=== PATIENT | male | born 1995 | race Caucasian/White ===

== ENCOUNTER 2016-10-23 12:36 | Day surgery (SDC) | payer MEDICARE ==
[~2016-10-23] VITALS: Ht 177.8 cm; Wt 102.7 kg
[~2016-10-23 12:36] MED LIST: CeFAZolin Inj 2 GM in IV Premix 1 EACH IV ONE; IBUP200C PO; Lactated Ringer's 1,000 ML IV SCH; metroNIDAZOLE Inj 500 MG in IV Premix 1 EACH IV ONE
[2016-10-23] MEDS ORDERED: Propofol 10,000 mCg/mL 20 mL Inj ONE (12:37)
[2016-10-23] MEDS ORDERED: metroNIDAZOLE 500 mg/100 mL NS Premix IV ONE (12:39)
[2016-10-23 12:55] VITALS: BP 130/69; PULSE 81; RESP 18; O2SAT 97
[2016-10-23] MEDS ORDERED: Lactated Ringer's 1,000 ML IV ONE (13:19)
[2016-10-23] MEDS ORDERED: Bupivacaine-MPF 0.25%/EPI 30 mL Inj INFILTRATE ONE (14:24)
[2016-10-23] MEDS ORDERED: Lidocaine 1% 50 mL Inj INFILTRATE ONE (14:24)
[2016-10-23] MEDS ORDERED: Lactated Ringer's 500 ML IV PRN (14:49)
[2016-10-23] MEDS ORDERED: Lactated Ringer's 1,000 ML IV SCH (14:49)
--- NOTE | 2016-10-23 14:49 | PCM.HPANE ---
Patient Data Date of Service: October 23, 2016 Surgeon Admitting Provider: Attending Provider:Nick Velasquez MD Primary Care Physician:Carlos A Jacobs MD Other Provider:Chrsitie Barajas Anesthesia Reason for Visit Peristomal Wound Ht/WT & BMI Height (Feet): 5 Height (Inches): 10.00 Weight (Kilograms): 102.7 Body Mass Index 32.00 Allergies Coded Allergies: No Known Allergies (Unverified Allergy, Unknown, 02/05/16) Past Anesthesia History Anesthesia History: Denies:: Abnormal Airway, Anesthesia Reactions (Takes awhile to wake up), Difficult Intubation, Fam Anesthesia Reaction, Fam Malignant Hypertherm, Malignant Hyperthermia Diabetes History Hx Diabetes?: No MRSA MRSA: No Medications Home Meds Incl Beta Rancho: No Reported Medications Ibuprofen 200 Mg [id number] Mg PO QID PRN For Pain Ref 0 10/21/16 Discontinued Scripts Multivitamin (Multivitamins)1 Each Capsule1 Each PO DAILY #30 CAPSULE Prov:Marian Hilliard 03/07/15 History History of ENT Problems?: No HEENT History: Denies:: Abnormal Airway Cataracts Difficult Intubation Dysphagia Glaucoma Hearing Problem Sinus Problem TMJ Denture Type: None Teeth Condition: Within Normal Limits Hx of Heart Problems?: No Cardiovascular History: Denies:: AICD Abdominal Aortic Aneurism Atrial Fibrillation Cardiac Surgery Chest Pain Congestive Heart Failure Coronary Artery Disease Edema Heart Murmur Hypertension Irregular Heartbeat Pacemaker Peripheral Vascular Rheumatic Fever Thrombophlebitis Valvular Heart Disease Hx of Respiratory Problem?: No Respiratory History: Denies:: Asthma Chest Surgery Dyspnea Pneumonia Tuberculosis Hx Neurologic Problems?: No Neurological History: Denies:: CVA Dementia Dizziness Headaches Parkinson's Disease Seizures Hx of GI Problems?: Yes Gastrointestinal History: Denies:: Cirrhosis Diverticulitis Gall Bladder Disease Gastroesphageal Reflux Gastrointestinal Bleeding Heartburn Hepatitis Hiatal Hernia Liver Disease Rectal Bleeding Other GI Pertinent History: 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 Pressure Ulcers Hx Musculoskeletal Problems?: No Musculoskeletal History: Denies:: Back Injury Joint Replacement Hx of Psycho/Social Problems?: No Psycho Social History: Denies:: Anxiety Hx Depression (Situational) Suicide Attempt Hx Surgeries?: Yes (J-pouch, colectomy, abscess drains) Hx Any Other Health Problems?: Yes Other History: Positive for:: Hospitalization Denies:: Cancer (Precancerous) Thyroid Disease History Blood Transfusions: Denies:: Blood Transfusions Hx Diabetes: No Hx Alcohol Use: YesHx Substance Use: No Smoking Status: Never Smoker Have You Smoked inLast 12 mo: No Stop/Bang Treated for Sleep Apnea?: No Do You Have a CPAP Machine?: No S-Snoring: Do You Snore Loudly: Yes T-Tired: feel tired, fatigued: Yes O-Obsered: Observed not breath: No P-Blood Pressure: treated: No B- Body Mass Index > 35 kg/m2: No A- Age over 50: No N- Neck Large Circumference: No G- Gender Male: Yes MAGGIE Total Score: 3 MAGGIE Risk Assessment: Low Risk, <3 Yes Risk Assessment Category Category 1A: Patient has history of documented sleep apnea, and HAS NOT received any narcotic, sedative or anesthesia administration during this stay. Category 1B: Patient has history of documented sleep apnea, and HAS received any narcotic , sedative or anesthesia administration during this stay Category 2: Patient has SUSPECTED Obstructive Sleep Apnea, and HAS received any narcotic , sedative or anesthesia administration during this stay. Category 3: Patient has SUSPECTED Obstructive Sleep Apnea and HAS NOT received narcotic, sedative or anesthesia administration during this stay. Category 4: Outpatient in Procedural Areas with known sleep apnea or who screen positive for High Risk via the STOP/BANG questionnaire. Exam Exam Vital Signs Vital Signs Date Time Temp Pulse Resp B/P Pulse Ox O2 Delivery O2 Flow Rate FiO2 10/23/16 12:55 36.4 81 18 130/69 97 Room Air General Appearance: Oriented X3 HEENT/AIRWAY: MP 1 Lungs: Clear to Auscultation Heart: Exam Unremarkable Meds/Labs/Diagnostics Admission Meds Current Medications Lactated Ringer's (Lr) 1,000 ml @ ud STK-MED ONCE IV Last administered on t 13:19; Start 10/23/16 at 13:19; Stop 10/23/16 at 13:20; Status DC Bupivacaine HCl/ Epinephrine Bitart (Sensorcaine-MPF 0.25%/EPI Inj) 30 ml STK- MED ONCE INFILTRATE Last administered on 10/23/16 14:24; Start 10/23/16 at 14:24 ; Stop 10/23/16 at 14:37; Status DC Lidocaine HCl (Xylocaine 1% Inj) 30 ml STK-MED ONCE INFILTRATE Last administered on 10/23/16 14:24; Start 10/23/16 at 14:24; Stop 10/23/16 at 14:37; Status DC Plan Impression Patient chart reviewed, patient interviewed and anesthestic plan with risks, benefits, and alternatives discussed, and informed consent obtained. NPO per Anesth. Guidelines: Yes ASA Physical Status: ASA2 Mod Systemic Disease Anesthetic Plan: MAC Bene/Risks/Altern/Consents: Yes HP Complete Prior to Induction: Yes Brien Salazar MD October 23, 2016 14:49
[2016-10-23] MEDS ORDERED: Ondansetron 2 mg/mL 2 mL Inj IVPUSH PRN (14:50)
[2016-10-23] MEDS ORDERED: HYDROmorphone 1 mg/mL Inj IVPUSH PRN (14:50)
[2016-10-23] MEDS ORDERED: fentaNYL-PF 50 mCg/mL 2 mL Inj IVPUSH PRN (14:50)
[2016-10-23] MEDS ORDERED: Phenylephrine 10,000 mCg/mL Inj IVPUSH PRN (14:50)
[2016-10-23] MEDS ORDERED: EPHEDrine Sulfate 50 mg/mL Inj IVPUSH PRN (14:50)
[2016-10-23] MEDS ORDERED: Dexamethasone 4 mg/mL Inj IVPUSH PRN (14:50)
[2016-10-23] MEDS ORDERED: MetoCLOpramide 5 mg/mL 2 mL Inj IVPUSH PRN (14:50)
[2016-10-23 15:10] VITALS: BP 121/81; PULSE 80; RESP 14; O2SAT 99
[2016-10-23 15:20] VITALS: BP 127/92; PULSE 82; RESP 14; O2SAT 98
--- NOTE | 2016-10-23 16:09 | PCM.ANEP1 ---
Post Anesthesia Phase 1 PACU Phase 1 Assessment Date of Service: October 23, 2016 Vital Signs Vital Signs Date Time Temp Pulse Resp B/P Pulse Ox O2 Delivery O2 Flow Rate FiO2 10/23/16 15:20 82 14 127/92 98 Room Air 10/23/16 15:10 36.7 80 14 121/81 99 Room Air 10/23/16 12:55 36.4 81 18 130/69 97 Room Air Anesthetic Administered: MAC Level of Alertness: Awake, talking Pain: No Nausea or Vomiting: No Oxygen Delivery: Room Air Lungs: Clear to Auscultation Complications: No Follow up Care: No Brien Salazar MD October 23, 2016 16:09
--- NOTE | 2016-10-23 23:10 | OP ---
[address] [address] OPERATIVE REPORT PATIENT: CARLITA PATTERSON : 1995 MR#: [id number] ADMIT: 10/23/2016 JOB ID: [id number] DATE OF SURGERY: 10/23/2016 ANESTHESIA: MAC with local. PREOPERATIVE DIAGNOSIS(ES): Chronic peristomal wound. POSTOPERATIVE DIAGNOSIS(ES): Chronic peristomal wound. OPERATIVE PROCEDURE: Excision of peristomal wound with primary closure. SURGEON: Nick Velasquez MD. CORPORATE MEETING PLANNER: Francesco Ye PA-C (project assistant was required for the same and timely completion of the case). COMPLICATIONS: None. ESTIMATED BLOOD LOSS: Minimal. CONDITION: Satisfactory. SPECIMEN: Peristomal wound. FINDINGS: There was a 2 cm circumference wound about 1.5 cm just above and lateral to the stoma. This was excised and primarily closed. 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 For the past year and a half he has been dealing with a chronic wound just above the ileostomy that probably originated from a small case of folliculitis. This has been treated with antibiotics and localized wound care to no avail, likely because it is underneath the ostomy appliance. He was referred to me and I recommended complete excision with primary closure. OPERATIVE TECHNIQUE: The patient was taken to the operating room and placed in supine position. Light sedation was administered. Perioperative antibiotics were given. The stoma appliance was removed and the area prepped with Betadine and then draped. The ostomy itself was draped out of the field. Local anesthetic was instilled around the wound. I then excised the wounds in an elliptical fashion so that it ran transversely above the stoma. This was then closed with interrupted 3-0 Vicryl deep dermals followed by running 4-0 Monocryl. Dermabond was applied. The ostomy appliance was then reapplied.
--- NOTE | 2016-10-27 11:03 | PATH ---
SURGICAL PATHOLOGY Attending Physician:Nick Velasquez MD CASE STATUS: Signed Out PATIENT NAME: CARLITA PATTERSON JR PID: [id number] : 1995 DATE COLLECTED:10/23/2016 00:00 SPECIMEN: Skin, Debridement CLINICAL HISTORY: PERISTOMAL WOUND 1). PERISTOMAL WOUND FINAL DIAGNOSIS: 1.TISSUE FROM PERISTOMAL WOUND: SKIN AND SUBCUTANEOUS TISSUE WITH ACUTE AND CHRONIC INFLAMMATION AND EXTENSIVE ULCERATION. NEGATIVE FOR MALIGNANCY AND SIGNIFICANT ATYPIA. ICD10 CODE K94.09 GROSS DESCRIPTION: The specimen is received in one formalin filled container labeled with the patient's name, sublabeled "peristomal wound" and consists of a garland-zabala crusted ellipse of skin which measures 2.4 x 1.1 x 0.6 CM. The specimen is inked blue. The tips are submitted in cassette A. The remaining sample is serially sectioned into 5 pieces and entirely submitted in cassettes B., C. 10/24/2016 [facility] MICRO DESCRIPTION: See diagnosis. ICD-9 CODES: CPT CODES: 1: 33584 Electronically Signed Out Farhad Ohara MD [facility] [address], [place] [address] Technical component performed at [facility], [address] [place] [address] Ave[address], [place], [address]
== END 2016-10-23 23:59 | disposition home or self-care (01) ==
LOC: SAS 12:36
PROVIDERS: ATTEND General Practice
DX: S31.109A Unspecified open wound of abdominal wall, unspecified quadrant without penetration into peritoneal cavity, initial encounter (principal); K94.19 Other complications of enterostomy; R23.8 Other skin changes; D12.6 Benign neoplasm of colon, unspecified; L98.8 Other specified disorders of the skin and subcutaneous tissue; Z93.2 Ileostomy status; Z90.49 Acquired absence of other specified parts of digestive tract; Z80.0 Family history of malignant neoplasm of digestive organs
CPT/HCPCS: 13100; 88304; J0690; J2250; J3490; J7120

== ENCOUNTER 2017-01-28 12:54 | Emergency (ER) | payer MEDICARE ==
[~2017-01-28] VITALS: Ht 182.9 cm; Wt 104.5 kg
[~2017-01-28 12:54] MED LIST changes: -CeFAZolin Inj 2 GM in IV Premix 1 EACH IV ONE; -Lactated Ringer's 1,000 ML IV SCH; -metroNIDAZOLE Inj 500 MG in IV Premix 1 EACH IV ONE
[2017-01-28 13:00] VITALS: BP 115/80; PULSE 81; RESP 18; O2SAT 98
--- NOTE | 2017-01-28 13:29 | ED.REPORT ---
HPI-General Illness Date of Service Jan 28, 2017 ED Provider: Johnny Hermosillo MD Patient is a 21 year old male with a hx of familial polyposis who presents to the ED from complaining that his ileostomy is infected. He reports a foul odor, pain, nausea, and some bleeding onset a few days ago. He has had a wound next to his ileostomy for the past year and has been seeing wound care for it. He denies fever, chills, diaphoresis, or any other symptoms. He has had similar symptoms previously. Nursing Notes Stated Complaint: INFECTED PAINFUL WOUND Chief Complaint: Male Abdominal Pain Nursing Notes Reviewed: Yes Allergies: Coded Allergies: No Known Allergies (Unverified Allergy, Unknown, 01/28/17) Scheduled Cephalexin (Keflex) 500 Mg Capsule 500 MG PO QID Scheduled PRN Ibuprofen (Ibuprofen) 200 Mg Capsule 400 MG PO QID PRN PRN For Pain General Time Seen by MD: 13:28 Chief Complaint Other (Wound check ) Hx Obtained From: Patient, Other family... (Mother) Arrived By: Walk-in Sudden in Onset?: Yes Onset Occurred: 3 days ago Symptom Duration: Since onset Similar Sx Previous: Yes Past Medical History Past Medical History Notes: Dr. Pope - surgeon Past Medical History Precancerous colon - removed due to familial polyposis Past Surgical History Colectomy ileostomy placement Smoking History Never Smoker Social History Alcohol Use: "Social" Other Social History: Good social support Ambulatory Status Independent Review of Systems +foul odor from ileostomy Full Review of Systems Constitutional: Denies: Chills, Fever GI: Reports: Abdominal pain, Nausea Hematologic: Reports Bleeding Skin: Denies Diaphoresis Complete sys rev & neg: except as marked. Physical Exam Vital Signs Vital Signs Date Time Temp Pulse Resp B/P Pulse Ox O2 Delivery O2 Flow Rate FiO2 01/28/17 13:00 36.6 81 18 115/80 98 Room Air Initial VS: Reviewed, Vital signs normal Head / Eyes: Atraumatic, Normocephalic Neck: Full range of motion Skin: Warm, Dry Neurologic: Alert, Oriented, Nonfocal Psychiatric: Mood/affect normal, Behavior normal, Normal thought content General/Constitutional: Awake, Alert, No acute distress Abdomen: Soft ostomy site has macerated skin with open ulcer above normal appearing ostomy with proud flesh skin buds, foul smell, erythema, warmth, and tenderness, no fluctuance Back: Atraumatic Lower Extremity / Pelvis / MS: Atraumatic Interpretation & Diagnostics Lab Results Interpretation Result Diagram: 01/28/17 1355 01/28/17 1355 Test 01/28/17 13:55 White Blood Count 8.3th/mm3 (3.8-10.1) Red Blood Count 5.49mil/mm3 (4.40-5.80) Hemoglobin 15.6g/dL (13.8-17.2) Hematocrit 46.1% (41.0-50.0) Mean Corpuscular Volume 84.0fL (81-100) Mean Corpuscular Hemoglobin 28.4pg (27.0-35.0) Mean Corpuscular Hemoglobin Concent 33.8% (32.0-37.0) Red Cell Distribution Width 13.5% (12.3-15.4) Platelet Count 321bil/L (150-400) Neutrophils (%) (Auto) 57.4% (40-74) Lymphocytes (%) (Auto) 32.4% (14-46) Monocytes (%) (Auto) 8.5% (4-12) Eosinophils (%) (Auto) 1.3% (0-5) Basophils (%) (Auto) 0.2% (0-3) Sodium Level 141mEq/L (134-144) Potassium Level 4.4mEq/L (3.5-5.2) Chloride Level 103mEq/L (97-108) Carbon Dioxide Level 21mmol/L (18-29) Blood Urea Nitrogen 11mg/dL (6-20) Creatinine 0.85mg/dL (0.76-1.27) Estimat Glomerular Filtration Rate 120mL/min (>59) Glucose Level 89mg/dL (60-99) Calcium Level 9.5mg/dL (8.5-10.1) Total Bilirubin 0.7mg/dL (0.0-1.2) Aspartate Amino Transf (AST/SGOT) 26U/L (0-50) Alanine Aminotransferase (ALT/SGPT) 37U/L (0-44) Alkaline Phosphatase 91U/L (25-150) Total Protein 7.7g/dL (6.4-8.4) Albumin 4.3g/dL (3.4-5.0) Re-Eval/Medical Decision Med Decision/Clinical Course CBC unremarkable Time of Eval: 15:00 Re-Evaluation/Progress Note: Patient is rechecked and informed of the treatment plan to discharge with follow up. All questions are addressed. Counseled Regarding: Diagnosis, Lab results, Need for follow-up, When/why to return to ED Discharge & Departure Shift Change Sign-Out Patient Care Transferred: Yes Discussed Complaint(s): Yes Laboratory Evaluation: Ordered, not yet done Transfer of care to Dr. Pink at 1430 Primary Impression: Cellulitis Site of cellulitis: trunk Site of cellulitis of trunk: abdominal wall Qualified Code: L03.311 - Cellulitis of abdominal wall Discharge Condition All VS Reviewed: Yes Condition: Stable Additional Instructions: Thank you for seeking care at the emergency room. It is difficult for us to make definitive diagnoses in the ED but we believe that you are experiencing skin breakdown around her ostomy site with cellulitis. Our primary goal today in the ED was to evaluate you for any life-threatening conditions. Your evaluation was reassuring. You will be discharged with a prescription for antibiotics, please take as directed. Please apply barrier cream at least twice daily to your ostomy site to prevent skin irritation and breakdown. You should follow-up with your surgeon in the next week. Follow up with wound ostomy clinic - the best clinic is the [facility]. You may need a referral through your surgeon. You should return to the ED immediately if you develop worsening pain, swelling , redness, fevers, vomiting, cough, shortness of breath, chest pain, lightheadedness, weakness or any other concerning signs or symptoms. Thank you for letting us partake in your care today. [facility] Address: [address] [place] [address] [address], [place] [address] Referrals: Carlos A Jacobs MD (PCP) Care Transferred to: Dr. Pink Care Transferred at: 14:30 Fideibe Attestation Portions of this note were transcribed by Saul Zhu. I, Dr. Hermosillo personally performed the history, physical exam and medical decision-making; I reviewed and confirmed the accuracy of the information in the transcribed note. Signed by: Demetria Sykes, 01/28/17 Portions of this note were transcribed by Jose Anthony. I, Dr. Pink personally performed the history, physical exam and medical decision-making; I reviewed and confirmed the accuracy of the information in the transcribed note. copies to: Carlos A Jacobs MD, Kirk H MD Jan 28, 2017 13:29 SAUL ZHU Jan 28, 2017 13:37 JOSE ANTHONY Jan 28, 2017 15:01
[2017-01-28 14:17] LABS: BASOPHILS % (AUTO) 0.2 % (0-3); EOSINOPHILS % (AUTO) 1.3 % (0-5); MONOCYTES % (AUTO) 8.5 % (4-12); Mean Corpuscular Hemoglobin 28.4 pg (27.0-35.0); NEUTROPHILS % (AUTO) 57.4 % (40-74); Platelet Count 321 bil/L (150-400)
[2017-01-28] MEDS ORDERED: oxyCODONE-Acetamin 5-325 mg Tablet PO ONE (14:20)
[2017-01-28] MEDS ORDERED: CEPH-512 PO (15:04)
--- NOTE | 2017-01-28 16:02 | NUR ---
Inpatient Wound and Ostomy Nurse Ileostomy patient with ongoing peristomal wound seen multiple [facility] by ZUNILDA Hilliard. Today patient stated that his wound was draining odorous pus and bleeding. Wound bed glossy pink, small areas of granulation tissue but overall smooth and pink. Wound may be ulceration from convexity, os is noted to pointing at 2 o'clock, which is where wound is, although patient stated that os moves frequently. Peristomal skin was excoriated, red, and peeling but wound at 2 o'clock was only true wound noted. Wound was cleansed and blotted dry. No Sting Sure Prep was used on peristomal skin, then alginate cut to fit within wound margins was placed over wound bed. Small Tegaderm was placed over alginate, then patient cut his wafer, applied Harry ring and wafer, attached pouch. Patient instructed to keep all outpatient appointments and extra supplies were provided. He and his mom stated understanding of steps of dressing change. Patient has appointment with ZUNILDA next week.
[2017-01-28 16:08] VITALS: BP 125/83; PULSE 84; RESP 14; O2SAT 95
[2017-01-28] MEDS ORDERED: OXYC1TAB24 PO (16:12)
== END 2017-01-28 16:15 ==
LOC: SED 12:54
DX: L03.311 Cellulitis of abdominal wall (principal); Z98.890 Other specified postprocedural states